=== PATIENT | male | born 1975 | race Caucasian/White ===

== ENCOUNTER 2020-12-20 14:46 | Observation (INO) ==
[2020-12-20] MEDS ORDERED: 0.9 % SODIUM CHLORIDE 1,000 ML IV ONE (15:11)
--- NOTE | 2020-12-20 15:15 | Emergency Department Note ---
GI Bleed HPI General Chief complaint: Rectal Bleed Stated complaint: rectal bleed Time Seen by Provider: 12/20/20 14:52 Source: patient, family, RN notes reviewed and old records reviewed Mode of arrival: ambulatory Limitations: no limitations History of Present Illness HPI Narrative: Narrative: 45-year-old male complains of bright red blood per rectum. The 45-year-old male without preceding history had an episode of bright red blood about 1/2 cup this morning and has had 4-5 episodes of bloody bowel movements. He denies he denies spotting he denies blood streaking on stool and describes it as liquid bright red blood. He denies any nausea vomiting he denies any dizziness weakness or lightheadedness he denies any abdominal pain he denies any urinary complaints he denies any syncope. MD complaint: gross hematochezia Onset (ago): day(s) (1) Consistency: intermittent Severity: moderate Improves with: none Worsens with: bowel movement Associated symptoms: Denies abdominal pain, nausea, vomiting, epistaxis, fever, chills, headaches, loss of appetite, malaise, easy bruising, rash, other bleeding, shortness of breath, syncope and weakness Treatments Prior to Arrival: none Related Data Home Medications Medication Instructions Recorded Confirmed No Known Home Meds 12/20/20 12/20/20 Allergies Allergy/AdvReac Type Severity Reaction Status Date / Time No Known Drug Allergies Allergy Verified 12/20/20 16:45 Review of Systems ROS ROS Narrative: Narrative: All systems ED: reviewed and negative except as stated. [facility] Narrative Patient History Narrative: Narrative: Medical/Surgical/Family History All Active Problems Lower gastrointestinal hemorrhage (Acute) Social History Smoking Status: Never smoker Exam Narrative Narrative: Narrative: General Limitations: no limitations General appearance: Present alert and in no apparent distress Head Head: Present atraumatic, normocephalic and normal inspection Eye Eye: Present normal appearance, PERRL and EOMI; Absent scleral icterus and conjunctival injection ENT ENT: Present normal exam, normal oropharynx and mucous membranes moist Neck Neck: Present normal inspection, full ROM and trachea midline; Absent lymphadenopathy and thyromegaly Chest Chest: Present normal inspection and symmetric chest wall rise Respiratory Respiratory: Present normal lung sounds bilaterally; Absent respiratory distress, wheezes, stridor, accessory muscle use and prolonged expiratory phase Cardiovascular Cardiovascular: Present regular rate and normal rhythm; Absent systolic murmur and diastolic murmur Adbominal Abdominal: Present soft; Absent distention, tenderness, guarding, rebound, rigidity, organomegaly and mass Rectal Rectal: Present normal inspection, normal rectal tone, heme (+) stool, bloody stool and normal prostate; Absent fecal impaction, hemorrhoids, mass, tenderness, prostate tenderness and prostate enlargement Extremities Extremities: Present normal inspection, full ROM and normal capillary refill; Absent tenderness, pedal edema, pretibial edema and calf tenderness Back Back: Present normal inspection and full ROM; Absent tenderness, CVA tenderness (R), CVA tenderness (L) and spinous process tenderness Neurological Neurological: Present alert and oriented X3 Psychiatric Psychiatric: Present normal affect and normal mood Skin Skin: Present warm (WNL) and dry Course Vital Signs Vital signs: Vital Signs Temperature 97.3 F 12/20/20 14:48 Pulse Rate 94 H 12/20/20 14:48 Respiratory Rate 18 12/20/20 14:48 Blood Pressure 165/96 12/20/20 14:48 Pulse Oximetry (%) 97 12/20/20 14:48 Temperature 97.3 F 12/20/20 14:48 Pulse Rate 72 12/20/20 16:23 Respiratory Rate 18 12/20/20 14:48 Blood Pressure 100/57 12/20/20 16:23 Pulse Oximetry (%) 95 12/20/20 16:23 MDM MDM Narrative Medical decision making narrative: Narrative: 45-year-old with lower GI bleed. Multiple bleeding episodes today. Patient H&H is stabilized creatinine is 1.4 over BUN of 11. Discussed patient Dr. Iglesia Jane who graciously agreed to evaluate patient in the emergency department Differential Diagnosis Differential Diagnosis: LGIB, hemorrhoids, diverticulitis, fissure, tumor, Medical Records Medical records reviewed: Yes I reviewed the patient's medical records. Lab Data Lab results reviewed: Yes I reviewed the patient's lab results. Result diagrams: 12/20/20 15:30 12/20/20 15:30 Labs: Lab Results 12/20/20 12/20/20 12/20/20 Range/Units 15:30 15:30 15:30 WBC 7.8 (4.5-11.0) K/mcL RBC 5.28 (4.50-5.90) M/mcL Hgb 15.1 (13.5-16.5) g/dL Hct 46.3 (41.0-55.0) % MCV 87.7 (80.0-100.0) fL MCH 28.6 (26.0-34.0) pg MCHC 32.6 (31.0-36.0) g/dL RDW 14.7 H (11.5-14.5) % Plt Count 376 (140-440) K/mcL MPV 9.9 (7.4-10.4) fL Neut % (Auto) 64.4 (38.0-78.0) % Lymph % (Auto) 25.8 (15.0-49.0) % [place] % (Auto) 8.3 (1.0-12.0) % Eos % (Auto) 0.9 (0.0-7.0) % Baso % (Auto) 0.6 (0.0-2.0) % Lymph # (Auto) 2.02 (1.50-4.80) K/mcL [place] # (Auto) 0.65 (0.10-0.90) K/mcL Eos # (Auto) 0.07 (0.00-0.70) K/mcL Baso # (Auto) 0.05 (0.00-0.20) K/mcL Absolute Neutrophils 5.04 (1.80-8.00) K/mcL POC PT TNP PT (11.9-14.5) sec POC INR TNP INR (0.9-1.1) APTT (20.0-37.0) sec Sodium 135 (133-145) mmol/L Potassium 4.1 (3.3-5.1) mmol/L Chloride 100 (96-108) mmol/L Carbon Dioxide 27 (22-30) mmol/L Anion Gap 8.0 (8.0-16.0) BUN 11 (6-20) mg/dL Creatinine 1.4 H (0.7-1.2) mg/dL GFR Calculation 61 Glucose 96 (70-105) mg/dL Calcium 8.6 (8.6-10.4) mg/dL Total Bilirubin 0.2 (0.1-1.0) mg/dL AST 39 (<40) U/L ALT 32 (<40) U/L Alkaline Phosphatase 63 (39-117) U/L Total Protein 6.6 (5.9-8.4) gm/dL Albumin 3.6 (3.2-5.2) gm/dL Globulin 3.0 (2.2-3.7) gm/dL Albumin/Globulin Ratio 1.2 (1.0-2.3) 12/20/20 Range/Units 15:48 WBC (4.5-11.0) K/mcL RBC (4.50-5.90) M/mcL Hgb (13.5-16.5) g/dL Hct (41.0-55.0) % MCV (80.0-100.0) fL MCH (26.0-34.0) pg MCHC (31.0-36.0) g/dL RDW (11.5-14.5) % Plt Count (140-440) K/mcL MPV (7.4-10.4) fL Neut % (Auto) (38.0-78.0) % Lymph % (Auto) (15.0-49.0) % [place] % (Auto) (1.0-12.0) % Eos % (Auto) (0.0-7.0) % Baso % (Auto) (0.0-2.0) % Lymph # (Auto) (1.50-4.80) K/mcL [place] # (Auto) (0.10-0.90) K/mcL Eos # (Auto) (0.00-0.70) K/mcL Baso # (Auto) (0.00-0.20) K/mcL Absolute Neutrophils (1.80-8.00) K/mcL POC PT PT 12.3 (11.9-14.5) sec POC INR INR 0.9 (0.9-1.1) APTT 27.2 (20.0-37.0) sec Sodium (133-145) mmol/L Potassium (3.3-5.1) mmol/L Chloride (96-108) mmol/L Carbon Dioxide (22-30) mmol/L Anion Gap (8.0-16.0) BUN (6-20) mg/dL Creatinine (0.7-1.2) mg/dL GFR Calculation Glucose (70-105) mg/dL Calcium (8.6-10.4) mg/dL Total Bilirubin (0.1-1.0) mg/dL AST (<40) U/L ALT (<40) U/L Alkaline Phosphatase (39-117) U/L Total Protein (5.9-8.4) gm/dL Albumin (3.2-5.2) gm/dL Globulin (2.2-3.7) gm/dL Albumin/Globulin Ratio (1.0-2.3) EKG Data EKG #1: EKG attestation: Yes I reviewed and interpreted this EKG. EKG shows normal: sinus rhythm Rate: normal (79) Rhythm: NSR [place]/QRS: normal Voltage: c/w LVH QRS morphology: Present poor R-wave progression Interpretation: nonspecific ST-T wave changes Pulse Oximetry Data Pulse Ox %: 97 Interpretation: 97% on room air within normal limits. Discharge Plan Patient/Caregiver Discharge Instructions Pt seen by PRINCIPAL PLANNER/PA only: No Clinical Impression: Lower gastrointestinal hemorrhage Patient Disposition: Xfer As Inpt ([facility]) Follow up with: No,PCP [Primary Care Provider] - Prescriptions: No Action No Known Home Meds RF: 0
[2020-12-20] MEDS ORDERED: ONDANSETRON 4 MG/2 ML VIAL IV PRN (15:18)
[2020-12-20] MEDS ORDERED: PEG 3350/NA SULF,BICARB,CL/KCL 4,000 ML ORAL.SOL PO ONE (15:20)
[2020-12-20 16:12] LABS: Basophils # (Auto) 0.05 K/mcL (0.00-0.20); Basophils % (Auto) 0.6 % (0.0-2.0); Eosinophils # (Auto) 0.07 K/mcL (0.00-0.70); Eosinophils % (Auto) 0.9 % (0.0-7.0); Hematocrit 46.3 % (41.0-55.0); Hemoglobin 15.1 g/dL (13.5-16.5); Lymphocytes # (Auto) 2.02 K/mcL (1.50-4.80); Lymphocytes % (Auto) 25.8 % (15.0-49.0); Mean Cell Volume 87.7 fL (80.0-100.0); Mean Corpuscular HGB Conc 32.6 g/dL (31.0-36.0); Mean Platelet Volume 9.9 fL (7.4-10.4); Monocytes # (Auto) 0.65 K/mcL (0.10-0.90); Monocytes % (Auto) 8.3 % (1.0-12.0); Neutrophils % (Auto) 64.4 % (38.0-78.0); Platelet Count 376 K/mcL (140-440); RBC 5.28 M/mcL (4.50-5.90); Red Cell Distribution Width 14.7 % (11.5-14.5); WBC 7.8 K/mcL (4.5-11.0)
[2020-12-20 16:32] LABS: ALT/SGPT 32 U/L (<40); AST/SGOT 39 U/L (<40); Albumin 3.6 gm/dL (3.2-5.2); Albumin/Globulin Ratio 1.2 (1.0-2.3); Alkaline Phosphatase 63 U/L (39-117); Bilirubin,Total 0.2 mg/dL (0.1-1.0); Blood Urea Nitrogen 11 mg/dL (6-20); Calcium 8.6 mg/dL (8.6-10.4); Carbon Dioxide 27 mmol/L (22-30); Chloride 100 mmol/L (96-108); Glomerular Filtration Rate 61; Glucose 96 mg/dL (70-105)
[2020-12-20 16:47] LABS: Partial Thromboplastin Time 27.2 sec (20.0-37.0)
[2020-12-20 16:48] LABS: INR 0.9 (0.9-1.1); Prothrombin Time 12.3 sec (11.9-14.5)
--- NOTE | 2020-12-20 16:54 | General Surg History&Physical ---
HPI History of Present Illness Patient information: Note initiated : 12/20/20 at 4:50 pm Service Date, if different from initiated Date: 12/20/2020 Patient: Johnathon Ramirez 45 y/o M admitted on for rectal bleed. Chief Complaint: Bright red blood per rectum Chief complaint: Blood per rectum History of present illness: Mr. Ramirez is a 45 year old M who was in normal state of health until earlier today. He reports that he had some shoulder pain this morning so he popped 2 Aleve and one Tylenol, he was doing well until his stomach felt upset he went to the bathroom and had a bowl full of blood. He denies ever having a similar sort of episode. Since that time he has had 3 or 4 further bloody bowel movements. He reports the entire bowel movement is blood, does not appear to be mixed or on the outside of stool. He denies any history of hemorrhoids, he does report intermittent NSAID use for a shoulder injury that he sustained several years ago. He denies any epigastric or abdominal pain. He has no fevers chills nausea or vomiting. Review of Systems Review of systems: All systems are reviewed, negative other than above PFSH PFSH All Active Problems Lower gastrointestinal hemorrhage (Acute) MEDS/ALLERGIES Home Medications and Allergies Home Medications Medication Instructions Recorded Confirmed Type No Known Home Meds 12/20/20 12/20/20 History Allergies Allergy/AdvReac Type Severity Reaction Status Date / Time No Known Drug Allergies Allergy Verified 12/20/20 16:45 Physical Examination Vital Signs Vital signs: Temp Pulse Resp BP Pulse Ox 97.3 F 72 18 100/57 95 12/20/20 14:48 12/20/20 16:23 12/20/20 14:48 12/20/20 16:23 12/20/20 16:23 General physical appearance General physical exam: well developed, well nourished and no distress Eyes Eye exam: PERRL and normal ocular movement ENT ENT exam: normal pinna, normal nares, normal mucosa, no hearing loss and no mariama estion Head Head exam IM: Present atraumatic and normocephalic Neck Neck exam: no masses, no bruits, trachea midline, no lymphadenopathy and no venous distension Cardiovascular Cardiovascular exam IM: Present normal rate and rhythm Respiratory Respiratory exam: normal expansion, normal respiratory effort, clear to percussion and clear to auscultation Abdomen Abdomen: Present soft, non tender and bowel sounds Hernia: Present none Genitourinary Genitourinary (Male): Present normal penis with no external lesions Rectum Rectum: Present normal sphincter tone, no hemorrhoids, no tenderness, no masses and no bleeding Integumentary Integumentary: Present no rash, no growths and no abnormal pigmentation Neurologic Neurologic: Present normal coordination and normal sensation Musculoskeletal Musculoskeletal: Present normal gait and normal posture Psychiatric Psychiatric: Present oriented to time, oriented to person, oriented to place, speech is normal and memory intact Results Labs Result diagrams: 12/20/20 15:30 12/20/20 15:30 Labs: Abnormal lab results 12/20/20 12/20/20 Range/Units 15: 15: RDW 14.7 H (11.5-14.5) % Creatinine 1.4 H (0.7-1.2) mg/dL Diabetes panel 12/20/20 Range/Units 15:30 Sodium 135 (133-145) mmol/L Potassium 4.1 (3.3-5.1) mmol/L Chloride 100 (96-108) mmol/L Carbon Dioxide 27 (22-30) mmol/L BUN 11 (6-20) mg/dL Creatinine 1.4 H (0.7-1.2) mg/dL Glucose 96 (70-105) mg/dL Calcium 8.6 (8.6-10.4) mg/dL AST 39 (<40) U/L ALT 32 (<40) U/L Alkaline Phosphatase 63 (39-117) U/L Total Protein 6.6 (5.9-8.4) gm/dL Albumin 3.6 (3.2-5.2) gm/dL Calcium panel 12/20/20 Range/Units 15:30 Calcium 8.6 (8.6-10.4) mg/dL Albumin 3.6 (3.2-5.2) gm/dL Pituitary panel 12/20/20 Range/Units 15:30 Sodium 135 (133-145) mmol/L Potassium 4.1 (3.3-5.1) mmol/L Chloride 100 (96-108) mmol/L Carbon Dioxide 27 (22-30) mmol/L BUN 11 (6-20) mg/dL Creatinine 1.4 H (0.7-1.2) mg/dL Glucose 96 (70-105) mg/dL Calcium 8.6 (8.6-10.4) mg/dL Adrenal panel 12/20/20 Range/Units 15:30 Sodium 135 (133-145) mmol/L Potassium 4.1 (3.3-5.1) mmol/L Chloride 100 (96-108) mmol/L Carbon Dioxide 27 (22-30) mmol/L BUN 11 (6-20) mg/dL Creatinine 1.4 H (0.7-1.2) mg/dL Glucose 96 (70-105) mg/dL Calcium 8.6 (8.6-10.4) mg/dL Total Bilirubin 0.2 (0.1-1.0) mg/dL AST 39 (<40) U/L ALT 32 (<40) U/L Alkaline Phosphatase 63 (39-117) U/L Total Protein 6.6 (5.9-8.4) gm/dL Albumin 3.6 (3.2-5.2) gm/dL All other labs normal. A/P Assessment and plan (1) Lower gastrointestinal hemorrhage: Status: Acute Narrative A/P Narrative: This is a pleasant 45-year-old gentleman who presents with what appears to be a lower GI bleed, however with his use of NSAIDs and the bowel movements being fully blood cannot rule out a upper GI bleed. Risk, benefits, alternatives to treatment were discussed with the patient at length including admission, serial H&H along with EGD and colonoscopy to evaluate for cause of bleeding. He verbalizes understanding and desires to continue with this treatment plan. All of his questions are answered. Plan: Admit to [facility]. N.p.o. except oral bowel prep. We will add on for tomorrow for EGD and colonoscopy. Time Spent With Patient Time: Total time spent is greater than 50% in coordination of care (as documented) at patient's floor/unit and/or counseling patient:
[2020-12-20] MEDS ORDERED: LACTATED RINGERS 500 ML IV ONE (20:40)
[2020-12-20] MEDS: LACTATED RINGERS 1,000 ML IV SCH (21:55)
[2020-12-20] MEDS: 0.9 % SODIUM CHLORIDE 10 ML SYRINGE IV SCH (21:55)
[2020-12-20 22:33] LABS: Hematocrit 39.9 % (41.0-55.0); Hemoglobin 12.4 g/dL (13.5-16.5)
[2020-12-20] MEDS ORDERED: PROPOFOL 200 MG/20 ML VIAL IV SCH (23:59)
[2020-12-21] MEDS: LACTATED RINGERS 1,000 ML IV SCH ×5 (00:58→23:12)
[2020-12-21] MEDS: MIDAZOLAM 2 MG/2 ML VIAL IV SCH ×2 (01:00→08:02)
[2020-12-21] MEDS: 0.9 % SODIUM CHLORIDE 10 ML SYRINGE IV SCH ×3 (05:00→23:11)
[2020-12-21 06:57] LABS: Basophils # (Auto) 0.04 K/mcL (0.00-0.20); Basophils % (Auto) 0.4 % (0.0-2.0); Eosinophils # (Auto) 0 K/mcL (0.00-0.70); Eosinophils % (Auto) 0 % (0.0-7.0); Hematocrit 34.2 % (41.0-55.0); Hemoglobin 10.9 g/dL (13.5-16.5); Lymphocytes # (Auto) 1.46 K/mcL (1.50-4.80); Mean Corpuscular HGB Conc 31.9 g/dL (31.0-36.0); Mean Platelet Volume 9.8 fL (7.4-10.4); Monocytes # (Auto) 0.57 K/mcL (0.10-0.90); Monocytes % (Auto) 5.9 % (1.0-12.0); Neutrophils % (Auto) 78.7 % (38.0-78.0); Platelet Count 332 K/mcL (140-440); Red Cell Distribution Width 14.9 % (11.5-14.5); WBC 9.7 K/mcL (4.5-11.0)
[2020-12-21 07:29] LABS: Blood Urea Nitrogen 15 mg/dL (6-20); Carbon Dioxide 29 mmol/L (22-30); Chloride 103 mmol/L (96-108); Glomerular Filtration Rate 73; Glucose 97 mg/dL (70-105)
[2020-12-21] MEDS ORDERED: MIDAZOLAM 2 MG/2 ML VIAL ONE (08:02)
[2020-12-21] MEDS ORDERED: PROPOFOL 200 MG/20 ML VIAL IV ONE (08:02)
[2020-12-21] MEDS ORDERED: EPINEPHrine 1 MG/ML AMPUL IJ ONE (08:41)
--- NOTE | 2020-12-21 08:58 | EGD Procedure Note ---
EGD Procedure Notes Procedure Information Patient information: Note initiated : 12/21/20 at 8:54 am Service Date: 12/20/20 Patient: Johnathon Ramirez 45 y/o M admitted on 12/20/20 for rectal bleed. Pre-op diagnosis general: GI bleed Post-Op Diagnosis general: Same Procedure: Esophogogastroduodenoscopy Procedure Narrative: After risk benefits and alternatives to the procedure were discussed with the patient at length he verbalized understanding and desire to continue with the procedure. Patient was taken to endoscopy. Surgical timeout was taken to verify patient and procedure being performed sedation was administered with 2 mg of Versed and 500 mcg of propofol. An adult gastroscope was entered and advanced under direct vision into the second portion of the duodenum. The antrum was fully inspected, the scope was retroflexed in the stomach. Full examination revealed small and a food bolus in the stomach, no evidence of bleed. The GE junction was at 35 cm and the e sophagus was normal on full exam. Patient tolerated procedure well. Assessment: Normal EGD, no evidence of gastritis or other cause of GI bleed Image EGD: 1. Normal EGD 2. Normal retroflexion
--- NOTE | 2020-12-21 09:04 | Colonoscopy Procedure Note ---
Colonoscopy Procedure Notes Procedure Information Patient information: Note initiated : 12/21/20 at 9:00 am Service Date: 12/20/20 Patient: Johnathon Ramirez 45 y/o M admitted on 12/20/20 for rectal bleed. Pre-op diagnosis general: GI bleed Post-op diagnosis general: Same Procedure: Colonoscopy with control of bleed Procedure narrative: After risk benefits and alternatives to the procedure were discussed with the patient at length he verbalized understanding and desire to continue with the procedure. Patient was taken to endoscopy and placed supine on the endoscopy table. Conscious sedation was administered throughout the case see EGD report for total amounts of sedation. Digital rectal exam was performed which was within normal limits. An adult colonoscope was advanced under direct vision to the cecum which was identified by the [place]'s foot, the appendiceal orifice and opening to the terminal ileum. Full exam upon removal of scope was significant for angiodysplasia at 20 cm at the rectosigmoid junction with adherent clot, no active bleed. 3 cc of epinephrine was injected around the site. Old blood throughout the colon to the cecum and possible blood draining from terminal ileum. Retroflexion in the rectum was within normal limits. Assessment: Angiodysplasia of the rectum, adherent clot, no evidence for active bleed. Blood throughout colon, no active bleed identified. Image Colon: 1. Full exam to cecum, evidence of old blood to cecum 2. Angiodysplasia, adherent clot, injected with epinephrine.
[2020-12-21 15:40] LABS: Hematocrit 32.7 % (41.0-55.0); Hemoglobin 10.3 g/dL (13.5-16.5)
[2020-12-21 18:41] LABS: Hematocrit 31.9 % (41.0-55.0); Hemoglobin 10.3 g/dL (13.5-16.5)
[2020-12-22 01:51] LABS: Hematocrit 31.3 % (41.0-55.0)
[2020-12-22] MEDS: 0.9 % SODIUM CHLORIDE 10 ML SYRINGE IV SCH (05:45)
[2020-12-22 07:15] LABS: Hemoglobin 10.5 g/dL (13.5-16.5)
--- NOTE | 2020-12-22 08:34 | EKG ---
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 Measurements Intervals Mobile Rate: 79 P: -8 MT: 141 QRS: -5 QRSD: 84 T: -8 QT: 371 QTc: 426 Interpretive Statements Sinus rhythm Abnormal R-wave progression, late transition Consider left ventricular hypertrophy Borderline T abnormalities, inferior leads ST elev, probable normal early repol pattern Baseline wander NO PRIOR TRACING FOR COMPARISON ABNORMAL ECG Electronically Signed On 12-22-2020 8:34:11 PDT by Lorenzo Huber M.D. /store/[email or web address]/[id number]
--- NOTE | 2020-12-22 09:07 | Discharge Summary ---
Discharge Provider Provider Patient information: Note initiated : 12/22/20 at 9:06 am Service Date, if different from initiated Date: [] Patient: Johnathon Ramirez 45 y/o M admitted on 12/20/20 for rectal bleed. Chief Complaint: [] Date of admission: 12/20/20 17:20 Discharge date: 12/22/20 Primary care physician: PCP No COURSE Hospital Course Hospital course: Patient mated for GI bleed, underwent EGD without evidence of bleed, colonoscopy with angiodysplasia at 20 cm at the rectosigmoid junction, blood throughout the colon and evidence of old blood coming through the terminal ileum suggesting additional source of bleed between ligament of Treitz and terminal ileum. Post colonoscopy EGD his H&H remained stable, he had no further bloody bowel movements, is tolerating a regular diet. Discharge diagnosis: GI bleed Time Spent with Patient Time attestation: Total time spent providing and/or coordinating discharge services: Physical Examination Vital Signs Vital signs: Temp Pulse Resp BP Pulse Ox 98.3 F 81 14 145/83 92 12/22/20 07:19 12/22/20 07:19 12/22/20 07:19 12/22/20 07:19 12/22/20 07:19 Discharge Plan Patient/Caregiver Discharge Instructions Activity: increase activity as tolerated Diet: Regular Diet Activity Restrictions/Additional Instructions: Resume normal activity as tolerated. Establish care with primary care physician when patient returns home. Prescriptions: No Action No Known Home Meds RF: 0 Follow Up Plan Follow up with: No,PCP [Primary Care Provider] - Patient Disposition: Home, Self-Care Hospital Course: Patient is admitted to the hospital for a GI bleed, underwent EGD and colonoscopy which was significant for no evidence of bleed, no gastritis no ulcers on the EGD, colonoscopy was significant for angiodysplasia at the rectosigmoid junction, however he had blood throughout the colon and old blood coming through the terminal ileum consistent with another source of the bleed proximal to cecum distal to the ligament of Treitz. After EGD colonoscopy his H&H remained stable, he had no further bloody bowel movements and is stable for discharge home. Assessment: GI bleed Prognosis: Good Overall status at discharge: patient is progressing back to baseline Discharge Orders: Discharge Order (Routine); Ordered 12/22/20 Ordered By: Iglesia Jane Pending Pending Pending: Resuscitation Status Full Code Diet Clear Liquid Diet Start Sat Dec 22 903 Lactated Ringer's (Lactated Ringers) 1,000 mls @ 125 mls/hr IV .Q8H [facility] Last Admin: 12/21/20 23:12 Dose: 125 mls/hr Documented by: Infusion: 12/21/20 23:08 Dose: 125 mls/hr Documented by: Admin: 12/21/20 15:08 Dose: 125 mls/hr Documented by: Infusion: 12/21/20 12:35 Dose: 125 mls/hr Documented by: Admin: 12/21/20 07:30 Dose: Not Given Documented by: Admin: 12/21/20 04:35 Dose: 125 mls/hr Documented by: Infusion: 12/21/20 04:35 Dose: 125 mls/hr Documented by: Admin: 12/21/20 00:58 Dose: Not Given Documented by: Admin: 12/20/20 21:55 Dose: 125 mls/hr Documented by: MELIZA Sodium Chloride (0.9 % Sodium Chloride 10 Ml Syringe) 10 ml IV Q8 [facility] Last Admin: 12/22/20 05:45 Dose: 10 ml Documented by: Admin: 12/21/20 23:11 Dose: 10 ml Documented by: Admin: 12/21/20 13:16 Dose: Not Given Documented by: Admin: 12/21/20 05:00 Dose: Not Given Documented by: Admin: 12/20/20 21:55 Dose: Not Given Documented by: MELIZA Shift Summary 12/22/20 02:30 Shift Summary by Daxa Polk Diagnosis: Lower GI bleed Brief history of present illness: Admit 12/20 for 1st episode of GI bleeding for this patient. Colonoscopy + for angiodysplasia sigmoid region with Epi injection for control per Dr. Jane. Pt will likely discharge in A.M. as Hgb remains stable at 10.0 in presence of LR at 125mls/hr with only scant brown liquid BM's x2 thru night post bowel w/u. No further orthostatic hypotension after fluid volume replacement. Orientation:A/O x4 Oxygen/Airway needs: R/A- clear lungs Ambulation status: up w/assist only thru night but has been up oob w/o calling at times, reinforce safety. Voiding: Urinal IV access:right hand and wrist with 1 saline loc, 1 with LR @ 125/hr. Tubes/drains: Pain:0/10 Wounds:None Discharge plans:Likely in a.m. to return to [place] area/home. CM/Cardiac Rhythm (if applicable): N/A Alarms (if applicable): Drips (if applicable): Ventilation (if applicable): Additional Comments: Very pleasant/appreciative of care. Taking Clear Liq. w/o N&V Did have left arm IV infiltration that is resolving after prior warm pack. Initialized on 12/22/20 02:30 - END OF NOTE
[2020-12-22] MEDS: LACTATED RINGERS 1,000 ML IV SCH (09:56)
== END 2020-12-22 10:15 | disposition home or self-care (01) ==
LOC: MEDSUR 14:46 → ED 14:46 → MEDSUR 17:20
PROVIDERS: ADMIT Surgery; ATTEND Surgery